=== PATIENT | female | born 1975 | race Caucasian/White ===

== ENCOUNTER 2024-07-26 16:17 | Emergency (ER) | payer OTHER, SELFPAY ==
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
[2024-07-26 16:34] VITALS: BP 118/67; BP 118/80; PULSE 58; PULSE 76; RESP 16; O2SAT 97; O2SAT 99; BMI 23.4
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
--- NOTE | 2024-07-26 18:50 | MHC.EDTECH ---
This tech entered patient room. With bed rails in upright locked position, patient climbed out of bed from the end of bed and was walking to the bathroom with c-collar on. This tech made PETE Marcelino aware.
[2024-07-26 20:49] VITALS: BP 118/67; PULSE 58; RESP 16; TEMP 36.7; O2SAT 97
== END 2024-07-26 20:53 | disposition home or self-care (01) ==
PROVIDERS: Emergency Provider Emergency Medicine
DX: S16.1XXA Strain of muscle, fascia and tendon at neck level, initial encounter (principal); V43.52XA Car driver injured in collision with other type car in traffic accident, initial encounter; Y93.89 Activity, other specified; Y92.414 Local residential or business street as the place of occurrence of the external cause; Y99.9 Unspecified external cause status
CPT/HCPCS: 70450; 72125; 99282; 99284